=== PATIENT | male | born 1935 | race Caucasian/White ===

== ENCOUNTER 2020-12-10 12:06 | Emergency (ER) | payer MEDICARE, OTHER ==
--- NOTE | 2020-12-10 14:47 | PCM.EKG ---
#1 Interpretation EKG Date: 12/10/20 Time: 14:40 Rhythm: NSR Rate (Beats/Min): 74 [place]: Normal P-Wave: Present QRS: Normal ST-T: Normal QT: Normal IN/PQ Interval: 184 Comparison: NA - No Prior EKG EKG Interpretation Comments: TWI lead III, aVR, otherwise unremarkable
[2020-12-10 15:05] LABS: BLOOD UREA NITROGEN,BUN 28 mg/dL (7.0-18.0); CARBON DIOXIDE,CO2 28.3 mmol/L (21.0-32.0); CHLORIDE,CL 101 mmol/L (98-107); GLUCOSE RANDOM 108 mg/dL (74-106); LIPASE 125 U/L (73-393); POTASSIUM,K 4.6 mmol/L (3.5-5.1); SODIUM,NA 136 mmol/L (136-148)
--- NOTE | 2020-12-10 15:20 | CR ---
INDICATION: Dizziness, shortness of breath TECHNIQUE: Chest 2 views COMPARISON: August 12, 2019 FINDINGS: Given differences in technique, there is no significant interval change in the bilateral pulmonary fibrosis with bronchiectasis, particularly in the left lower lobe. Pneumothorax. No pleural effusion. No acute infiltrate. IMPRESSION: Chronic pulmonary fibrosis, similar to the prior study. Dictated by Lukas Sanches MD @ 12/10/2020 3:19:17 PM (Electronically Signed)
--- NOTE | 2020-12-10 15:22 | CT ---
INDICATION: Dizziness. TECHNIQUE: CT head without contrast. COMPARISON: None. FINDINGS: CSF spaces: Within normal limits for age. Brain parenchyma and extra-axial spaces: The sheldon-white differentiation is normal. No sign of mass, hemorrhage, or midline shift. No extra-axial fluid collection. Skull base and calvarium: The visualized paranasal sinuses and mastoid air cells demonstrate no acute or significant findings. The visualized orbits are grossly unremarkable. No skull fractures. IMPRESSION: Unremarkable noncontrast head CT. Please note that all CT scans at this facility use dose modulation, iterative reconstruction, and/or weight-based dosing when appropriate to reduce radiation dose to as low as reasonably achievable. Dictated by Jonah Hurtado MD @ 12/10/2020 3:21:45 PM (Electronically Signed)
--- NOTE | 2020-12-10 17:21 | EDM.PDOC ---
ED HPI GENERAL MEDICAL PROBLEM - General Chief Complaint: Neuro Symptoms/Deficits Stated Complaint: WEAKNESS, NUMBNESS, SHAKY Time Seen by Provider: 12/10/20 13:59 Source of Information: Reports: Patient History Limitations: Reports: No Limitations - History of Present Illness INITIAL COMMENTS - FREE TEXT/NARRATIVE: HISTORY AND PHYSICAL: History of present illness: Patient is an 85-year-old male who presents emergency room today with concern of pins and needle sensation of his bilateral hands and feet that has been ongoing for the past 1 month, generalized weakness, tremor, and "feeling unlike himself "that he feels is in relation to receiving Rituximab infusion. Patient has a history of COPD and Sjogren's that is affecting the lungs causing pulmonary fibrosis so is on chronic steroid use. Patient states that he is following with a chief internal auditor and diploma dental assistant at [facility]. Patient states he received 1 dose of rituximab back in September and states that he received a second IV infusion of this 3 to 4 weeks ago. Patient states that he feels like the second infusion induced his symptoms and states that he has been having tremor of his upper extremities, feeling shaky, generalized weakness, feeling unlike himself, and pins and needle sensation in his hands and feet. Patient states that his symptoms tend to be worse in the morning and better at night and states that these have been ongoing since his last infusion 3 to 4 weeks ago and states that each day seems to be getting worse which is why he came to the emergency room. Patient denies any head injury or loss of consciousness. Patient denies any associated pain. Or any other symptoms or concerns. Patient denies fever, chills, chest pain, shortness of breath, or cough. Denies headache, neck stiff ness, change in vision, syncope, or near syncope. Denies nausea, vomiting, abdominal pain, diarrhea, constipation, or dysuria. Has not noted any blood in urine or stool. Patient has been eating and drinking appropriately. Review of systems: As per history of present illness and below otherwise all systems reviewed and negative. Past medical history: As per history of present illness and as reviewed below otherwise noncontributory. Surgical history: As per history of present illness and as reviewed below otherwise noncontributory. Social history: See social history for further information Family history: As per history of present illness and as reviewed below otherwise noncontributory. Physical exam: General: Patient is alert, oriented, and in no acute distress. Patient sitting comfortably on exam table. Vitals stable and reviewed by me. HEENT: Atraumatic, normocephalic, pupils equal and reactive bilaterally, negative for conjunctival pallor or scleral icterus, mucous membranes moist, TMs normal bilaterally, throat clear, neck supple, nontender, trachea midline. No drooling or trismus noted. No meningeal signs. No hot potato voice noted. Lungs: Clear to auscultation, breath sounds equal bilaterally, chest nontender. Heart: S1S2, regular rate and rhythm without overt murmur Abdomen: Soft, nondistended, nontender. Negative for masses or hepatosplenomegaly. Negative for costovertebral tenderness. Pelvis: Stable nontender. Genitourinary: Deferred. Rectal: Deferred. Skin: Intact, warm, dry. No lesions or rashes noted. Extremities: Patient has full range of motion of all extremities without pain or difficulty. Intact sensation to light and deep touch of the complete right and left upper extremity and right and left lower extremity. Patient is noted to have a tremor with extension of both of his hands that does go away with resting his hands. Otherwise, atraumatic, negative for cords or calf pain. Neurovascular unremarkable. Neuro: Awake, alert, oriented. Cranial nerves II through XII unremarkable. Cerebellum unremarkable. Motor and sensory unremarkable throughout. Exam nonfocal. Notes: See Dr. Jorgensen's dictation for specific EKG interpretation. However, no STEMI CBC shows mild leukocytosis of 12.27 (patient is on chronic steroid use), hemoglobin elevation at 17.2, otherwise mild derangements of CBC unremarkable. CMP shows an elevation in creatinine at 1.6 (in comparison the past lab work is stable) and BUN elevation of 28, otherwise mild derangements of CMP unremarkable. Troponin negative. Lipase within normal limits. Urinalysis clear of infection. COVID-19 negative. Influenza negative. Head CT without contrast is unremarkable. Chest x-ray shows chronic pulmonary fibrosis, similar to prior. 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 I did try and speak to multiple hospital facilities to discuss this side effect with a chief internal auditor, as I do not fully know the extent of this, however, given holiday, no hospitals at this time have any rheumatology consult available. I did call and speak to the neurologist on-call for [facility], Dr. Lin, being this is where patient receives his infusions, and thoroughly discussed patient's case. 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 He states that he will see patient in his clinic tomorrow to schedule an MRI and would like patient to be at his clinic tomorrow at 1 PM. Upon reevaluation of patient, he remains vitally stable and comfortable throughout stay in ED. Strict return precautions thoroughly discussed with patient. Discussed importance for follow-up with a neurologist Voices understanding and is agreeable to plan of care. Denies any further questions or concerns at this time. Diagnostics: EKG, CBC, CMP Therapeutics: None Prescription: None Impression: Paresthesia, unspecified Tremor, unspecified Weakness Plan: 1. Follow-up with the neurologist Dr. Lin at [facility] to [place] at 1 PM as scheduled and as discussed. 2. Return to the ED as needed and as discussed. Definitive disposition and diagnosis as appropriate pending reevaluation and review of above. - Related Data Allergies Allergy/AdvReac Type Severity Reaction Status Date / Time Sulfa (Sulfonamide Allergy Unknown Verified 12/10/20 14:03 Antibiotics) Home Meds: Home Meds Atovaquone 12/10/20 [History] Budesonide/Formoterol Fumarate [Symbicort 80-4.5 MCG] 12/10/20 [History] Budesonide/Formoterol [Symbicort 160-4.5 MCG] 12/10/20 [History] Levothyroxine 12/10/20 [History] Mirtazapine 12/10/20 [History] Omeprazole 12/10/20 [History] predniSONE [Prednisone] 12/10/20 [History] Past Medical History - Past Health History Medical/Surgical History: Denies Medical/Surgical History HEENT History: Reports: None Cardiovascular History: Reports: None Respiratory History: Reports: COPD Gastrointestinal History: Reports: GERD Genitourinary History: Reports: None Musculoskeletal History: Reports: None Neurological History: Reports: None Psychiatric History: Reports: Depression Endocrine/Metabolic History: Reports: None Hematologic History: Reports: None Immunologic History: Reports: None Oncologic (Cancer) History: Reports: Thyroid Dermatologic History: Reports: None - Infectious Disease History Infectious Disease History: Reports: None - Past Surgical History Head Surgeries/Procedures: Reports: None Social & Family History - Family History Family Medical History: No Pertinent Family History - Tobacco Use Tobacco Use Status *Q: Former Tobacco User Used Tobacco, but Quit: Yes Month/Year Tobacco Last Used: 15 years - Caffeine Use Caffeine Use: Reports: None - Recreational Drug Use Recreational Drug Use: No ED ROS GENERAL - Review of Systems Review Of Systems: Comprehensive ROS is negative, except as noted in HPI. ED EXAM, GENERAL - Physical Exam Exam: See Below (see dictation) Course - Vital Signs Last Recorded V/S: Last Vital Signs Temp 98.2 F 12/10/20 17:30 Pulse 87 12/10/20 17:30 Resp 18 12/10/20 17:30 BP 128/81 12/10/20 17:30 Pulse Ox 93 L 12/10/20 17:30 - Orders/Labs/Meds Orders: Active Orders 24 hr Category Date Time Status Isolation [COMM] Routine Oth 12/10/20 14:16 Active Labs: Laboratory Tests 12/10/20 12/10/20 12/10/20 Range/Units 14:35 14:35 14:39 WBC 12.27 H (4.0-11.0) K/uL RBC 5.49 (4.50-5.90) M/uL Hgb 17.2 H (13.0-17.0) g/dL Hct 49.3 (38.0-50.0) % MCV 89.8 (80.0-98.0) fL MCH 31.3 (27.0-32.0) pg MCHC 34.9 (31.0-37.0) g/dL RDW Std Deviation 48.7 (28.0-62.0) fl RDW Coeff of Julia 15 (11.0-15.0) % Plt Count 225 (150-400) K/uL MPV 9.70 (7.40-12.00) fL Neut % (Auto) 90.5 H (48.0-80.0) % Lymph % (Auto) 4.9 L (16.0-40.0) % Schleicher % (Auto) 4.3 (0.0-15.0) % Eos % (Auto) 0.1 (0.0-7.0) % Baso % (Auto) 0.2 (0.0-1.5) % Neut # (Auto) 11.1 H (1.4-5.7) K/uL Lymph # (Auto) 0.6 (0.6-2.4) K/uL Sch[place]icher # (Auto) 0.5 (0.0-0.8) K/uL Eos # (Auto) 0.0 (0.0-0.7) K/uL Baso # (Auto) 0.0 (0.0-0.1) K/uL Nucleated RBC % 0.0 /100WBC Nucleated RBCs # 0 K/uL Sodium 136 (136-148) mmol/L Potassium 4.6 (3.5-5.1) mmol/L Chloride 101 (98-107) mmol/L Carbon Dioxide 28.3 (21.0-32.0) mmol/L BUN 28 H (7.0-18.0) mg/dL Creatinine 1.6 H (0.8-1.3) mg/dL Est Cr Clr Drug Dosing 36.12 mL/min Estimated GFR (MDRD) 41.5 ml/min Glucose 108 H (74-106) mg/dL Calcium 9.4 (8.5-10.1) mg/dL Total Bilirubin 0.4 (0.2-1.0) mg/dL AST 22 (15-37) IU/L ALT 40 (14-63) IU/L Alkaline Phosphatase 61 (46-116) U/L Troponin I < 0.050 (0.000-0.056) ng/mL Total Protein 7.2 (6.4-8.2) g/dL Albumin 3.6 (3.4-5.0) g/dL Globulin 3.6 (2.6-4.0) g/dL Albumin/Globulin Ratio 1.0 (0.9-1.6) Lipase 125 (73-393) U/L Urine Color Urine Appearance Urine pH (5.0-8.0) Ur Specific [place] (1.001-1.035) Urine Protein (NEGATIVE) mg/dL Urine Glucose (UA) (NEGATIVE) mg/dL Urine Ketones (NEGATIVE) mg/dL Urine Occult Blood (NEGATIVE) Urine Nitrite (NEGATIVE) Urine Bilirubin (NEGATIVE) Urine Urobilinogen (<2.0) EU/dL Ur Leukocyte Esterase (NEGATIVE) Urine RBC (0-2/HPF) Urine WBC (0-5/HPF) Ur Epithelial Cells (NONE-FEW) Urine Bacteria (NEGATIVE) Urine Mucus (NONE-MOD) SARS-CoV-2 RNA (HEIDI) NEGATIVE (NEGATIVE) 12/10/20 Range/Units 15:07 WBC (4.0-11.0) K/uL RBC (4.50-5.90) M/uL Hgb (13.0-17.0) g/dL Hct (38.0-50.0) % MCV (80.0-98.0) fL MCH (27.0-32.0) pg MCHC (31.0-37.0) g/dL RDW Std Deviation (28.0-62.0) fl RDW Coeff of Julia (11.0-15.0) % Plt Count (150-400) K/uL MPV (7.40-12.00) fL Neut % (Auto) (48.0-80.0) % Lymph % (Auto) (16.0-40.0) % Sch[place]icher % (Auto) (0.0-15.0) % Eos % (Auto) (0.0-7.0) % Baso % (Auto) (0.0-1.5) % Neut # (Auto) (1.4-5.7) K/uL Lymph # (Auto) (0.6-2.4) K/uL [place] # (Auto) (0.0-0.8) K/uL Eos # (Auto) (0.0-0.7) K/uL Baso # (Auto) (0.0-0.1) K/uL Nucleated RBC % /100WBC Nucleated RBCs # K/uL Sodium (136-148) mmol/L Potassium (3.5-5.1) mmol/L Chloride (98-107) mmol/L Carbon Dioxide (21.0-32.0) mmol/L BUN (7.0-18.0) mg/dL Creatinine (0.8-1.3) mg/dL Est Cr Clr Drug Dosing mL/min Estimated GFR (MDRD) ml/min Glucose (74-106) mg/dL Calcium (8.5-10.1) mg/dL Total Bilirubin (0.2-1.0) mg/dL AST (15-37) IU/L ALT (14-63) IU/L Alkaline Phosphatase (46-116) U/L Troponin I (0.000-0.056) ng/mL Total Protein (6.4-8.2) g/dL Albumin (3.4-5.0) g/dL Globulin (2.6-4.0) g/dL Albumin/Globulin Ratio (0.9-1.6) Lipase (73-393) U/L Urine Color YELLOW Urine Appearance CLEAR Urine pH 7.0 (5.0-8.0) Ur Specific [place] 1.020 (1.001-1.035) Urine Protein TRACE H (NEGATIVE) mg/dL Urine Glucose (UA) NEGATIVE (NEGATIVE) mg/dL Urine Ketones NEGATIVE (NEGATIVE) mg/dL Urine Occult Blood NEGATIVE (NEGATIVE) Urine Nitrite NEGATIVE (NEGATIVE) Urine Bilirubin NEGATIVE (NEGATIVE) Urine Urobilinogen 0.2 (<2.0) EU/dL Ur Leukocyte Esterase NEGATIVE (NEGATIVE) Urine RBC 0-1 (0-2/HPF) Urine WBC 0-2 (0-5/HPF) Ur Epithelial Cells OCCASIONAL (NONE-FEW) Urine Bacteria FEW (NEGATIVE) Urine Mucus LIGHT (NONE-MOD) SARS-CoV-2 RNA (HEIDI) (NEGATIVE) Departure - Departure Time of Disposition: 17:19 Disposition: Home, Self-Care 01 Clinical Impression: Paresthesias, Tremor, Weakness - Discharge Information Referrals: Hernan Sr MD [Primary Care Provider] - Forms: ED Department Discharge Additional Instructions: The following information is given to patients seen in the emergency department who are being discharged to home. This information is to outline your options for follow-up care. We provide all patients seen in our emergency department with a follow-up referral. The need for follow-up, as well as the timing and circumstances, are variable depending upon the specifics of your emergency department visit. If you don't have a primary care physician on staff, we will provide you with a referral. We always advise you to contact your personal physician following an emergency department visit to inform them of the circumstance of the visit and for follow-up with them and/or the need for any referrals to a consulting specialist. The emergency department will also refer you to a specialist when appropriate. This referral assures that you have the opportunity for follow-up care with a specialist. All of these measure are taken in an effort to provide you with optimal care, which includes your follow-up. Under all circumstances we always encourage you to contact your private physician who remains a resource for coordinating your care. When calling for follow-up care, please make the office aware that this follow-up is from your recent emergency room visit. If for any reason you are refused follow-up, please contact the [facility] Emergency Department at and asked to speak to the emergency department charge nurse. [id number] Dr[facility] [address] [place] [id number] 1. Follow-up with the neurologist Dr. Lin at [facility] tomorrow at 1 PM as scheduled and as discussed. 2. Return to the ED as needed and as discussed. Sepsis Event Note (ED) - Evaluation Sepsis Screening Result: No Definite Risk - Focused Exam Vital Signs: Vital Signs Temp Pulse Resp BP Pulse Ox 12/10/20 17:30 98.2 F 87 18 128/81 93 L 12/10/20 16:46 98.2 F 84 18 116/73 93 L 12/10/20 15:37 84 18 118/87 92 L 12/10/20 14:30 88 18 126/73 92 L 12/10/20 13:59 97.8 F 78 18 153/93 H 92 L - My Orders Last 24 Hours: My Active Orders 12/10/20 14:16 Isolation [COMM] Routine - Assessment/Plan Last 24 Hours: My Active Orders 12/10/20 14:16 Isolation [COMM] Routine
== END 2020-12-10 17:30 | disposition home or self-care (01) ==
LOC: MW.ED 12:06
DX: R20.2 Paresthesia of skin (principal); R25.1 Tremor, unspecified; R53.1 Weakness; J44.9 Chronic obstructive pulmonary disease, unspecified; Z88.2 Allergy status to sulfonamides; Z87.891 Personal history of nicotine dependence; Z20.822 Contact with and (suspected) exposure to COVID-19
CPT/HCPCS: 36415; 70450; 71046; 80053; 81001; 83690; 84484; 85025; 87804; 93005; 99285; U0002

== ENCOUNTER 2021-06-26 20:41 | Inpatient (IN) | payer MEDICARE, OTHER ==
[2021-06-26] MEDS ORDERED: Sodium Chloride 0.9% 10 ML Syringe FLUSH PRN (21:10)
[2021-06-26] MEDS ORDERED: Sodium Chloride 0.9% 2.5 ML Syringe FLUSH PRN (21:10)
[2021-06-26] MEDS ORDERED: Albuterol/Ipratropium 3.0-0.5 MG/3 ML Neb Soln NEB ONE (21:14)
[2021-06-26 22:37] LABS: BLOOD UREA NITROGEN,BUN 32 mg/dL (7.0-18.0); CARBON DIOXIDE,CO2 25.8 mmol/L (21.0-32.0); CHLORIDE,CL 100 mmol/L (98-107); GLUCOSE RANDOM 168 mg/dL (74-106); POTASSIUM,K 4.3 mmol/L (3.5-5.1); SODIUM,NA 137 mmol/L (136-148)
[2021-06-26] MEDS ORDERED: Azithromycin 500 MG in Sodium Chloride 0.9% 250 ML IV ONE (23:11)
[2021-06-26] MEDS ORDERED: cefTRIAXone 1 GM in Sodium Chloride 0.9% 50 ML IV ONE (23:11)
[2021-06-26] MEDS ORDERED: Sodium Chloride 0.9% 500 ML IV SCH (23:15)
[2021-06-27] MEDS: methylPREDNISolone Sodium Succinate 40 MG/1 ML SDV IVPUSH SCH ×3 (07:05→21:24)
[2021-06-27] MEDS: Lactated Ringers 1,000 ML IV SCH ×2 (07:05→16:10)
[2021-06-27] MEDS: Pantoprazole 40 MG in Sodium Chloride 0.9% 10 ML IVPUSH SCH (07:05)
[2021-06-27] MEDS: Albuterol/Ipratropium 3.0-0.5 MG/3 ML Neb Soln NEB SCH ×3 (07:06→13:04)
[2021-06-27 08:01] LABS: CARBON DIOXIDE,CO2 25.6 mmol/L (21.0-32.0); POTASSIUM,K 4.2 mmol/L (3.5-5.1)
[2021-06-27] MEDS ORDERED: Ipratropium 12.9 GM Inhaler INH PRN (14:00)
[2021-06-27] MEDS ORDERED: Lactated Ringers 1,000 ML IV ONE ×2 (14:03→22:44)
[2021-06-27] MEDS: Mirtazapine 15 MG Tab PO SCH (21:23)
[2021-06-27] MEDS: FLUOROURACIL 5% TOP SCH (21:23)
[2021-06-27] MEDS: Metoprolol Tartrate 25 MG Tab PO SCH (22:30)
[2021-06-28] MEDS ORDERED: cefTRIAXone 1 GM in Sodium Chloride 0.9% 50 ML IV SCH (00:01)
[2021-06-28] MEDS ORDERED: Azithromycin 250 MG Tab PO SCH (00:01)
[2021-06-28] MEDS: Lactated Ringers 1,000 ML IV SCH (00:45)
[2021-06-28] MEDS: Levothyroxine 112 MCG Tab PO SCH ×2 (06:13→06:44)
[2021-06-28] MEDS: methylPREDNISolone Sodium Succinate 40 MG/1 ML SDV IVPUSH SCH ×3 (06:14→22:01)
[2021-06-28] MEDS: Pantoprazole 40 MG in Sodium Chloride 0.9% 10 ML IVPUSH SCH ×2 (06:19→06:45)
[2021-06-28 07:17] LABS: CARBON DIOXIDE,CO2 27.1 mmol/L (21.0-32.0); POTASSIUM,K 4.5 mmol/L (3.5-5.1)
[2021-06-28] MEDS ORDERED: Omeprazole 20 MG Cap.CR PO SCH (07:30)
[2021-06-28] MEDS: Metoprolol Tartrate 25 MG Tab PO SCH (09:13)
[2021-06-28] MEDS: FLUOROURACIL 5% TOP SCH ×2 (09:18→21:00)
[2021-06-28] MEDS ORDERED: Metoprolol Tartrate 5 MG/5 ML SDV IVPUSH PRN (14:30)
[2021-06-28] MEDS ORDERED: Iopamidol 755 MG/ML 500 ML Multipack Bottle IVPUSH ONE (15:56)
[2021-06-28] MEDS: Mirtazapine 15 MG Tab PO SCH (20:19)
[2021-06-28] MEDS: Metoprolol Tartrate 50 MG Tab PO SCH (20:20)
[2021-06-28] MEDS: Azithromycin 250 MG Tab PO SCH (22:02)
[2021-06-29] MEDS: Levothyroxine 112 MCG Tab PO SCH ×2 (06:23→06:50)
[2021-06-29] MEDS: methylPREDNISolone Sodium Succinate 40 MG/1 ML SDV IVPUSH SCH ×2 (06:23→18:05)
[2021-06-29] MEDS: Pantoprazole 40 MG in Sodium Chloride 0.9% 10 ML IVPUSH SCH (06:32)
[2021-06-29 07:23] LABS: CARBON DIOXIDE,CO2 26.8 mmol/L (21.0-32.0); POTASSIUM,K 4.8 mmol/L (3.5-5.1)
[2021-06-29] MEDS: Metoprolol Tartrate 50 MG Tab PO SCH ×2 (09:22→20:41)
[2021-06-29] MEDS: FLUOROURACIL 5% TOP SCH ×2 (09:23→20:43)
[2021-06-29] MEDS ORDERED: Azithromycin 250 MG Tab PO SCH (10:30)
[2021-06-29] MEDS: Piperacillin/Tazobactam 3.375 GM in Sodium Chloride 0.9% 50 ML IV SCH ×2 (10:44→18:05)
[2021-06-29] MEDS: Mirtazapine 15 MG Tab PO SCH (20:41)
[2021-06-29] MEDS: Azithromycin 250 MG Tab PO SCH ×2 (20:41→22:00)
[2021-06-30] MEDS: Piperacillin/Tazobactam 3.375 GM in Sodium Chloride 0.9% 50 ML IV SCH ×3 (02:15→19:46)
[2021-06-30 06:30] LABS: CARBON DIOXIDE,CO2 24.7 mmol/L (21.0-32.0); POTASSIUM,K 4.6 mmol/L (3.5-5.1)
[2021-06-30] MEDS: Pantoprazole 40 MG in Sodium Chloride 0.9% 10 ML IVPUSH SCH (06:43)
[2021-06-30] MEDS: Levothyroxine 112 MCG Tab PO SCH (06:43)
[2021-06-30] MEDS: methylPREDNISolone Sodium Succinate 40 MG/1 ML SDV IVPUSH SCH ×2 (06:43→19:46)
[2021-06-30] MEDS: FLUOROURACIL 5% TOP SCH (08:45)
[2021-06-30] MEDS: Metoprolol Tartrate 50 MG Tab PO SCH (08:45)
[2021-06-30] MEDS ORDERED: Albuterol/Ipratropium 3.0-0.5 MG/3 ML Neb Soln NEB PRN (10:23)
[2021-06-30] MEDS ORDERED: Metoprolol Tartrate 25 MG Tab PO SCH (21:00)
== END 2021-06-30 15:00 | DRG 193 ==
LOC: MW.ED 20:41 → MW.MS 23:36 → OBSVTOIN 06-28 12:06 → MW.MS 06-28 17:08
PROVIDERS: ADMIT Student in an Organized Health Care Education/Training Program; ATTEND Student in an Organized Health Care Education/Training Program
DX: J44.1 Chronic obstructive pulmonary disease with (acute) exacerbation (principal); J18.9 Pneumonia, unspecified organism; L03.115 Cellulitis of right lower limb; J96.21 Acute and chronic respiratory failure with hypoxia; J45.901 Unspecified asthma with (acute) exacerbation; J84.9 Interstitial pulmonary disease, unspecified; N17.9 Acute kidney failure, unspecified; R04.2 Hemoptysis; R78.81 Bacteremia; S99.821A Other specified injuries of right foot, initial encounter; L03.116 Cellulitis of left lower limb; I47.1 Supraventricular tachycardia; J44.9 Chronic obstructive pulmonary disease, unspecified; M35.00 Sjogren syndrome, unspecified; K21.9 Gastro-esophageal reflux disease without esophagitis; F32.A Depression, unspecified; Z20.822 Contact with and (suspected) exposure to COVID-19; W22.8XXA Striking against or struck by other objects, initial encounter; Z99.81 Dependence on supplemental oxygen; Z79.899 Other long term (current) drug therapy; Z79.890 Hormone replacement therapy; Z88.2 Allergy status to sulfonamides; Z85.850 Personal history of malignant neoplasm of thyroid
CPT/HCPCS: 36415 ×3; 71045; 71275; 73620; 80048 ×2; 80053; 83605; 83735; 83880; 84100; 84484; 85007; 85025 ×2; 85027; 85379; 85610; 87040 ×2; 87154; 93005; 93971; 94640 ×3; A9270 ×5; C9113 ×2; J0456; J0696 ×2; J2920 ×4; J3370; J7040; J7050 ×2; J7120 ×5; U0002; 85014; 85018; 87077; 87186; 96365; 96375; 99285-25; J2543; J3490; J7620-GY; Q9967